=== PATIENT | female | born 1930 | race Hispanic/Latino ===

== ENCOUNTER 2017-06-13 13:26 | Inpatient (IN) | payer MEDICAID, SELFPAY ==
[2017-06-13 14:13] LABS: #Lymphocytes 1.1 thou/uL (1.20-3.40); #Monocytes 0.9 thou/uL (0.11-0.59); #Neutrophils 13.3 thou/uL (1.40-6.50); %Eosinophils 0.2 % (0.0-10.0); %Lymphocytes 7.3 % (21.0-51.0); %Monocytes 5.7 % (0.0-10.0); Mean Platelet Volume 8.3 fL (7.4-10.4); Red Blood Cell (RBC) Count 4.12 mill/uL (4.20-5.40); White Blood Cell (WBC) Count 15.3 thou/uL (4.8-10.8)
[2017-06-13 14:29] LABS: Lactic Acid - Sepsis 2.6 mmol/L (0.5-2.2)
[2017-06-13] MEDS ORDERED: Azithromycin 500 MG VIAL ONE (14:55)
[2017-06-13] MEDS ORDERED: Acetaminophen 500 MG TAB ONE (14:55)
[2017-06-13 15:26] LABS: Bilirubin Negative (Negative); Blood, Urine Trace (Negative); Glucose, Urine (Dipstick) Negative (Negative); Ketone, Urine Negative (Negative); Nitrite Negative (Negative); Protein, Urine (Dipstick) Negative (Neg-Trace)
[2017-06-13 15:28] LABS: Bacteria/HPF None Seen HPF (None Seen); Hyaline Casts/LPF 0-3 HYALINE CAST LPF (0-3 Hyaline); Squamous Epithelial None Seen HPF (0-3); WBC/HPF None Seen HPF (0-3)
[2017-06-13 15:30] LABS: Calcium 8.8 mg/dL (7.8-10.44); Chloride 102 mmol/L (98-107)
[2017-06-13 15:31] LABS: Globulin 3.6 g/dL (2.4-3.5); Protein, Total 7.5 g/dL (6.0-8.3)
[2017-06-13 15:33] LABS: Anion Gap 14 mmol/L (10-20); Carbon Dioxide 23 mmol/L (23-31)
[2017-06-13 15:34] LABS: Alkaline Phosphatase 104 U/L (40-150)
[2017-06-13 15:35] LABS: BUN (Urea Nitrogen) 9 mg/dL (9.8-20.1); Calc. Creatinine Clearance 0 mL/min (70-130); Estimated GFR-MDRD 81
[2017-06-13 15:36] LABS: AST (SGOT) 20 U/L (5-34)
[2017-06-13 15:37] LABS: ALT (SGPT) 17 U/L (8-55)
--- NOTE | 2017-06-13 16:08 | RAD ---
PORTABLE AP CHEST X-RAY 06/13/17 HISTORY: Fever and dyspnea. COMPARISON: 09/04/10. FINDINGS: The cardiac silhouette is magnified by projection but is probably mildly enlarged. There is crowding of the bronchovascular markings due to depth of inspiration and portable technique. However, the lung s are otherwise grossly clear. Vascular calcifications are seen in a tortuous thoracic aorta. There i s osteopenia. No other interval change. IMPRESSION: 1. No acute cardiopulmonary process. 2. Mild cardiomegaly. POS: LIN
--- NOTE | 2017-06-13 16:28 | CT ---
CT ANGIOGRAM THORAX AND ABDOMEN WITH IV CONTRAST AND 3D RECONSTRUCTIONS 06/13/17 HISTORY: Periumbilical pain that radiates to the back. Pain is intermittent. Patient also complains of left ar m pain and chest pain. FINDINGS: The thoracic and abdominal aorta are normal in caliber without evidence of an aortic dissection. Ther e is scattered vascular calcifications in the thoracic and abdominal aorta. There is mild narrowing a t the origin of the celiac artery with mild to moderate narrowing at the origin of the SMA. ROSALINE origi n is not well seen. There are two left renal arteries which appear patent with single patent right re nal artery. The heart is mildly enlarged. There are linear areas of scarring versus atelectasis at each lung base and in the right middle lobe. No discrete pulmonary nodular mass is seen and there is no evidence o f a pleural effusion. Post cholecystectomy changes are seen. There are subcentimeter too small to characterize hypodense lesions involving each kidney. There is a lso a larger low density lesion seen in the mid portion of the right kidney difficult to characterize due to artifact. There is diminished attenuation of the liver which may be related to fatty infiltration, but this is difficult to evaluate without precontrast imaging. The spleen, pancreas, and bilateral adrenal glands demonstrate a normal CT appearance. There is evide nce of a small hiatal hernia present. Vascular calcifications are seen in the most proximal common iliac arteries. There are degenerative changes seen throughout the thoracic as well as lumbar spine. IMPRESSION: 1. The thoracic and abdominal aorta are normal in caliber without evidence of an aortic dissecti on. Only minimal atherosclerotic vascular calcifications are present. 2. Subcentimeter too small to characterize hypodense lesions in each kidney with a larger hypode nse lesion in the mid portion right kidney which is difficult to definitively characterize due artifa ct related to patient's arms overlying the abdomen. However, this statistically likely represents a c yst. Ultrasound may be helpful. 3. Post cholecystectomy changes. 4. No acute findings are seen in the chest or abdomen. POS: [facility]
[2017-06-13] MEDS ORDERED: Acetaminophen 325 MG TAB PO PRN ×2 (17:08→17:51)
[2017-06-13] MEDS ORDERED: Sodium Chloride 0.9% 1,000 ML IV SCH (17:08)
[2017-06-13] MEDS ORDERED: ISOVUE-370 76%-LOCM 1 ML ONE (17:17)
[2017-06-13 17:47] VITALS: BMI 35.7
[2017-06-13] MEDS ORDERED: Fleet Enema 133 ML BOT PR PRN (17:51)
[2017-06-13] MEDS ORDERED: Milk Of Magnesia 30 ML UDCUP PO PRN (17:51)
[2017-06-13] MEDS ORDERED: FLU VACC TS2017-18 (>65YR) 0.5 ML SYRINGE IM ONE (18:15)
[2017-06-13] MEDS ORDERED: Levofloxacin 750 mg/D5W 500 MG in Premix Bag 1 BAG IVPB SCH ×4 (18:30)
--- NOTE | 2017-06-13 19:05 | HP ---
REASON FOR ADMISSION: Sepsis, urinary tract infection. HISTORY OF PRESENTING ILLNESS: The patient gives history of having chills with rigors from Wednesday. She has had lower abdominal pain radiating to the back. She went to [facility] this morning and she was found to be short of breath and was asked to go to the emergency room. She has had some dry cough, but no expectoration. She has been nauseated and threw up 2 times here in the ER. She still has chills and rigors and had a temperature of 100 degrees on arrival here. The patient has had one bowel movement this morning, which appeared normal. No urinary frequency or urgency per patient. No complaints of chest pain, palpitation, or PND. No prior history of similar complaints. PAST MEDICAL AND SURGICAL HISTORY: History of hypertension, cholecystectomy. CURRENT MEDICATIONS: Captopril 25 mg daily, Motrin p.r.n. for pain. ALLERGIES: No known drug allergies. PERSONAL HISTORY: Does not abuse alcohol or drugs. No history of smoking. FAMILY HISTORY: Has 2 living sisters who are healthy as far she knows. Patient ambulates mostly by herself, occasionally uses cane. She has not had her flu shot for this year. REVIEW OF SYSTEMS: The following complete review of systems was negative, unless otherwise mentioned in the HPI or below: CONSTITUTIONAL: Weight loss or gain, ability to conduct usual activities. SKIN: Rash, itching. EYES: Double vision, pain. ENT/MOUTH: Nose bleeding, neck stiffness, pain, tenderness. CARDIOVASCULAR: Palpitations, dyspnea on exertion, orthopnea. RESPIRATORY: Shortness of breath, wheezing, cough, hemoptysis, fever or night sweats. GASTROINTESTINAL: Poor appetite, abdominal pain, heartburn, nausea, vomiting, constipation, or diarrhea. GENITOURINARY: Urgency, frequency, dysuria, nocturia. MUSCULOSKELETAL: Pain, swelling. NEUROLOGIC/PSYCHIATRIC: Anxiety, depression. ALLERGY/IMMUNOLOGIC: Skin rash, bleeding tendency. PHYSICAL EXAMINATION: GENERAL: The patient is an 87-year-old female who is currently in mild to moderate distress from chills and rigors. VITAL SIGNS: Blood pressure 186/74, pulse 96 per minute, respiratory rate 22 per minute, temperature 99.5 degrees Fahrenheit, saturating 94% on room air. NECK: Supple, no elevated JVD. HEENT: Extraocular muscles intact. Pupils reacting to light. Oral cavity mucous membranes are dry. No exudates or congestion. CARDIOVASCULAR SYSTEM: S1, S2 heard. Regular rhythm. RESPIRATORY SYSTEM: Air entry 1+ bilateral. Scattered rhonchi plus no rales or wheezes. ABDOMEN: There is mild tenderness in the suprapubic area. No guarding or rigidity. There is mild distention of the abdomen. There was no CVA angle tenderness. EXTREMITIES: No peripheral edema or calf tenderness. VASCULAR SYSTEM: Peripheral pulses 1+ bilateral. No ischemic ulcerations or gangrene. CENTRAL NERVOUS SYSTEM: No gross focal deficits seen. Patient is alert, awake , and oriented well. PSYCHIATRIC: The patient's mood is euthymic. No hallucinations or delusions. LABORATORY AND X-RAY FINDINGS: White count of 15, H&H 13 and 39, with 86% neutrophils, MCV is 94. Sodium 135, BUN 9, creatinine 0.6, glucose 114. Lactic acid is 2.6. UA shows trace blood, otherwise no signs of infection as such. Chest x-ray by my review shows no acute infiltrate. CT dissection protocol has been done. The official results are pending at present. CLINICAL IMPRESSION AND PLAN: The patient will be admitted to medical floor for sepsis with chills, rigors, and temperature of 100 degrees. We will obtain blood and urine cultures along with sputum cultures as well. She will be on broad broad-spectrum antibiotics for now including cefepime, Levaquin, and vancomycin until the source of sepsis is revealed. She will be on normal saline at 100 mL per hour. Code status is FULL. I have discussed this with the patient and her immediate family here. We will follow up on the CT dissection protocol results. FATEMEH
[2017-06-13] MEDS: Sodium Chloride 0.9% 1,000 ML IV SCH (19:27)
[2017-06-13] MEDS ORDERED: Cefepime 1 GM in Sodium Chloride 0.9% 100 ML IVPB SCH (21:00)
[2017-06-13] MEDS: Cefepime 1 GM, Admixture Fee 1 EACH in Sterile Water 10 ML SLOW IVP SCH (21:29)
[2017-06-13] MEDS: Famotidine 20 MG TAB PO SCH (21:30)
[2017-06-13] MEDS: Vancomycin HCl 1 GM in Premix Bag 1 BAG IVPB SCH (21:30)
[2017-06-13] MEDS: Docusate 100 MG CAP PO SCH (21:30)
[2017-06-14] MEDS: Sodium Chloride 0.9% 1,000 ML IV SCH ×2 (02:43→13:51)
[2017-06-14 05:23] LABS: #Lymphocytes 1.4 thou/uL (1.20-3.40); #Monocytes 0.8 thou/uL (0.11-0.59); #Neutrophils 10.7 thou/uL (1.40-6.50); %Basophils 0.2 % (0.0-1.0); %Eosinophils 0.1 % (0.0-10.0); %Lymphocytes 11.1 % (21.0-51.0); %Monocytes 6.3 % (0.0-10.0); Mean Platelet Volume 7.6 fL (7.4-10.4); Red Blood Cell (RBC) Count 3.37 mill/uL (4.20-5.40)
[2017-06-14 05:43] LABS: ALT (SGPT) 15 U/L (8-55); AST (SGOT) 20 U/L (5-34); Alkaline Phosphatase 88 U/L (40-150); Anion Gap 10 mmol/L (10-20); BUN (Urea Nitrogen) 5 mg/dL (9.8-20.1); Bilirubin, Total 0.8 mg/dL (0.2-1.2); Calc. Creatinine Clearance 69 mL/min (70-130); Carbon Dioxide 20 mmol/L (23-31); Chloride 110 mmol/L (98-107); Estimated GFR-MDRD Greater than 90; Globulin 3.1 g/dL (2.4-3.5); Protein, Total 6.3 g/dL (6.0-8.3)
[2017-06-14] MEDS ORDERED: Artificial Tears 18 DROP/0.9 ML EA EYE PRN (07:22)
[2017-06-14] MEDS ORDERED: Loratadine 10 MG TAB PO PRN (07:22)
[2017-06-14] MEDS ORDERED: Chloraseptic Spray 180 ml Bottle PO PRN (07:22)
[2017-06-14] MEDS ORDERED: Eucerin (Mineral Oil/Petrolatum,White) 30 gm Jar TOP PRN (07:22)
[2017-06-14] MEDS ORDERED: Ondansetron ODT 4 MG TAB PO PRN (07:22)
[2017-06-14] MEDS ORDERED: Mag-Al 1200 mg/1200 mg/30 ML UDCUP PO PRN (07:22)
[2017-06-14] MEDS ORDERED: Diabetic Tussin 200 MG/10 ML UDCUP PO PRN (07:22)
[2017-06-14] MEDS ORDERED: Zolpidem Tartrate 5 MG TAB PO PRN (07:22)
[2017-06-14] MEDS ORDERED: Ondansetron HCl/PF 4 MG/2 ML Vial IVP PRN (07:22)
[2017-06-14] MEDS ORDERED: hydrALAZINE 20 MG/ML VIAL SLOW IVP PRN (07:22)
[2017-06-14] MEDS ORDERED: Sodium Chloride 0.65% Nasal 44 ML BOT EA NARE PRN (07:22)
[2017-06-14] MEDS ORDERED: ISOVUE-370 76%-LOCM 1 ML ONE (07:42)
[2017-06-14] MEDS ORDERED: Potassium Chloride 20 MEQ TAB PO SCH (08:00)
[2017-06-14] MEDS: Famotidine 20 MG TAB PO SCH ×2 (08:54→20:49)
[2017-06-14] MEDS: Enoxaparin Sodium 40 MG/0.4 ML SYRINGE SC SCH (08:57)
[2017-06-14] MEDS: Cefepime 1 GM, Admixture Fee 1 EACH in Sterile Water 10 ML SLOW IVP SCH ×2 (08:58→20:51)
[2017-06-14] MEDS: Docusate 100 MG CAP PO SCH (08:58)
[2017-06-14] MEDS: metroNIDAZOLE 500 MG in Premix Bag 1 BAG IVPB SCH ×2 (10:18→17:17)
--- NOTE | 2017-06-14 11:54 | PDOC.PN ---
- Subjective Encounter Start Date: 06/14/17 Encounter Start Time: 09:00 -: old records requested/rev pt has fever, has diarrhoea and left lower abdomen pain, no chest pain - Objective Resuscitation Status: Resuscitation Status FULL:Full Resuscitation MAR Reviewed: Yes Vital Signs & Weight: Vital Signs (12 hours) Temp Pulse Resp BP Pulse Ox 06/14/17 11:17 99.9 F H 67 18 152/72 H 94 L 06/14/17 08:00 99.4 F 68 18 151/74 H 94 L 06/14/17 05:44 98.5 F 06/14/17 05:27 100.9 F H 71 18 118/61 93 L 06/14/17 05:00 100.8 F H 06/14/17 02:16 100.5 F H 06/14/17 01:13 99.9 F H 79 18 158/65 H 18 L 06/14/17 00:24 99.6 F 75 18 144/68 H 96 Weight Admit Weight 142 lb 14.4 oz Weight 142 lb 14.4 oz I&O: 06/13/17 06/14/17 06/15/17 06:59 06:59 06:59 Intake Total 1649 Output Total 450 Balance 1199 Result Diagrams: 06/14/17 04:38 06/14/17 04:38 Radiology Reviewed by me: Yes Phys Exam - Physical Examination Constitutional: NAD HEENT: PERRLA, moist MMs, sclera anicteric Neck: no JVD, supple Respiratory: no wheezing, no rales, no rhonchi Cardiovascular: RRR, no significant murmur, no rub Gastrointestinal: soft, no distention, positive bowel sounds LLQ tenderness Musculoskeletal: no edema, pulses present Neurological: non-focal, normal sensation, moves all 4 limbs Psychiatric: normal affect, A&O x 3 Skin: no rash, normal turgor Dx/Plan (1) Abdominal pain Code(s): R10.9 - UNSPECIFIED ABDOMINAL PAIN Status: Acute Qualifiers: Abdominal location: left lower quadrant Qualified Code(s): R10.32 - Left lower quadrant pain (2) Acute bronchitis Code(s): J20.9 - ACUTE BRONCHITIS, UNSPECIFIED Status: Acute (3) Lactic acidosis Code(s): E87.2 - ACIDOSIS Status: Acute (4) Sepsis Code(s): A41.9 - SEPSIS, UNSPECIFIED ORGANISM Status: Acute (5) Hypertension Code(s): I10 - ESSENTIAL (PRIMARY) HYPERTENSION Status: Chronic (6) Obesity (BMI 30-39.9) Code(s): E66.9 - OBESITY, UNSPECIFIED Status: Chronic (7) Hypokalemia Code(s): E87.6 - HYPOKALEMIA Status: Acute - Plan cont current plan of care, plan discussed w/ family, continue antibiotics * suspecting diverticulitis/colitis * will get CT abdomen * add flagyl * continue levaquin * send stool for infection. * medication reviewed as below * symptomatic treatment * replace potassium * continue IVF Review of Systems - Review of Systems Constitutional: Fever. negative: Chills, Sweats, Weakness, Malaise, Other ENT: negative: Ear Pain, Ear Discharge, Nose Pain, Nose Discharge, Nose Congestion, Mouth Pain, Mouth Swelling, Throat Pain, Throat Swelling, Other Respiratory: negative: Cough, Dry, Shortness of Breath, Hemoptysis, SOB with Excertion, Pleuritic Pain, Sputum, Wheezing Cardiovascular: negative: Chest Pain, Palpitations, Orthopnea, Paroxysmal Noc. Dyspnea, Edema, Light Headedness, Other Gastrointestinal: Abdominal Pain. negative: Nausea, Vomiting, Diarrhea, Constipation, Melena, Hematochezia, Other Genitourinary: negative: Dysuria, Frequency, Incontinence, Hematuria, Retention , Other Musculoskeletal: negative: Neck Pain, Shoulder Pain, Arm Pain, Back Pain, Hand Pain, Leg Pain, Foot Pain, Other Skin: negative: Rash, Lesions, Addy, Bruising, Other - Medications/Allergies Allergies/Adverse Reactions: Allergies Allergy/AdvReac Type Severity Reaction Status Date / Time No Known Allergies Allergy Unverified 06/13/17 17:04 Medications: Current Medications Acetaminophen (Tylenol) 650 mg PO Q4H PRN PRN Reason: Headache/Fever or Pain Last Admin: 06/14/17 01:16 Dose: 650 mg Hydrocodone Bitart/Acetaminophen ([place] 5/325) 1 tab PO Q4H PRN PRN Reason: Moderate Pain (4-6) Al Hydroxide/Mg Hydroxide (Maalox) 15 ml PO Q4H PRN PRN Reason: Heartburn or Indigestion Artificial Tears (Tears Naturale) 0 drop EA EYE PRN PRN PRN Reason: Dry Eyes Enoxaparin Sodium (Lovenox) 40 mg SC 0900 [facility] Last Admin: 06/14/17 08:57 Dose: 40 mg Famotidine (Pepcid) 20 mg PO BID [facility] Last Admin: 06/14/17 08:54 Dose: 20 mg Guaifenesin (Robitussin Sf) 200 mg PO Q4H PRN PRN Reason: Cough Guaifenesin/Dextromethorphan (Robitussin Dm) 15 ml PO Q4H PRN PRN Reason: Cough Hydralazine HCl (Apresoline) 10 mg SLOW IVP Q4H PRN PRN Reason: Systolic BP > 180 Sodium Chloride (Normal Saline 0.9%) 1,000 mls @ 100 mls/hr IV .Q10H [facility] Last Admin: 06/14/17 02:43 Dose: Not Given Vancomycin HCl 1 gm/ Device 200 mls @ 200 mls/hr IVPB 1999 [facility] Last Admin: 06/13/17 21:30 Dose: 200 mls Cefepime HCl 1 gm/Miscellaneous Medication 1 each/ Sterile Water 10 mls @ 120 mls/hr SLOW IVP 0800,1999 [facility] Last Admin: 06/14/17 08:58 Dose: 10 mls Levofloxacin 500 mg/ Device 100 mls @ 100 mls/hr IVPB Q2D [facility] Last Admin: 06/13/17 19:27 Dose: 100 mls Metronidazole 500 mg/ Device 100 mls @ 100 mls/hr IVPB 0200,1000,1800 [facility] Last Admin: 06/14/17 10:18 Dose: 100 mls Loratadine (Claritin) 10 mg PO DAILYPRN PRN PRN Reason: Sinus Symptoms Magnesium Hydroxide (Milk Of Magnesium) 30 ml PO DAILYPRN PRN PRN Reason: Constipation Mineral Oil/White Petrolatum (Eucerin Cream) 0 gm TOP BIDPRN PRN PRN Reason: Dry Skin Ondansetron HCl (Zofran Odt) 4 mg PO Q6H PRN PRN Reason: Nausea/Vomiting Ondansetron HCl (Zofran) 4 mg IVP Q6H PRN PRN Reason: Nausea/Vomiting Phenol (Chloraseptic [place] 180 Ml Bot) 0 ml PO PRN PRN PRN Reason: Sore Throat Saccharomyces Boulardii (Florastor) 250 mg PO DAILY [facility] Sodium Biphosphate/Sodium Phosphate (Fleet Enema) 133 ml [place] ONE PRN PRN Reason: Constipation Stop: 06/14/17 17:52 Sodium Chloride ([place] Nasal [place] 0.65%) 0 ml EA NARE QIDPRN PRN PRN Reason: Nasal Congestion Zolpidem Tartrate (Ambien) 5 mg PO HSPRN PRN PRN Reason: Insomnia
--- NOTE | 2017-06-14 18:43 | CT ---
CT ABDOMEN AND PELVIS WITH IV AND ORAL CONTRAST: HISTORY: Abdominal pain and pelvic pain. COMPARISON: 06/13/2017. FINDINGS: Mild atelectasis and scarring are present at the lung bases. Hiatal hernia contains oral contrast. The gallbladder is surgically absent. Calcifications at the arterial structures is evident. There a re cysts within the kidneys. No evidence of bowel obstruction. Urinary bladder is unremarkable. Diverticulitis from the colon. Inflammation within the pelvic fat is centered around the mid to dist al sigmoid colon. There is minimal adjacent fluid. IMPRESSION: 1. Sigmoid colitis. Diverticulitis is the favored diagnosis. No evidence of perforation or abscess. 2. Atherosclerosis. 3. Status post cholecystectomy. POS: [facility]
[2017-06-14] MEDS: Vancomycin HCl 1 GM in Premix Bag 1 BAG IVPB SCH (20:52)
[2017-06-14] MEDS: HYDROcodone/Acetaminophen 5/325 mg Tablet PO PRN (21:18)
[2017-06-14] MEDS: Guaifenesin DM 100-10/5 ML UDCUP PO PRN (21:19)
[2017-06-15] MEDS: Sodium Chloride 0.9% 1,000 ML IV SCH ×2 (00:36→01:43)
[2017-06-15] MEDS: metroNIDAZOLE 500 MG in Premix Bag 1 BAG IVPB SCH ×3 (01:46→16:48)
[2017-06-15] MEDS: Famotidine 20 MG TAB PO SCH ×2 (08:10→20:05)
[2017-06-15] MEDS: Saccharomyces boulardii 250 MG CAP PO SCH (08:10)
[2017-06-15] MEDS: Enoxaparin Sodium 40 MG/0.4 ML SYRINGE SC SCH (08:10)
[2017-06-15] MEDS: NS 0.9% w/ 20 MEQ KCL 1,000 ML/1,000 ML BAG IV SCH ×2 (08:10→16:48)
--- NOTE | 2017-06-15 11:13 | PDOC.PN ---
- Subjective Encounter Start Date: 06/15/17 Encounter Start Time: 09:45 Patient seen and examined. No new complaints. No overnight events, has LLQ pain - Objective Resuscitation Status: Resuscitation Status FULL:Full Resuscitation MAR Reviewed: Yes Vital Signs & Weight: Vital Signs (12 hours) Temp Pulse Resp BP Pulse Ox 06/15/17 08:00 99.1 F 66 18 143/71 H 95 06/15/17 04:00 98.7 F 61 20 119/67 06/15/17 00:00 99.2 F 65 20 113/68 95 Weight Admit Weight 142 lb 14.4 oz Weight 142 lb 14.4 oz I&O: 06/14/17 06/15/17 06/16/17 06:59 06:59 06:59 Intake Total 1649 1000 Output Total 450 Balance 1199 1000 Result Diagrams: 06/14/17 04:38 06/14/17 04:38 Radiology Reviewed by me: Yes (CT abdomen) Phys Exam - Physical Examination Constitutional: NAD HEENT: PERRLA, moist MMs, sclera anicteric Neck: no JVD, supple Respiratory: no wheezing, no rales, no rhonchi, clear to auscultation bilateral Cardiovascular: RRR, no significant murmur, no rub Gastrointestinal: soft, no distention, positive bowel sounds LLQ tenderness Musculoskeletal: no edema, pulses present Neurological: non-focal, normal sensation, moves all 4 limbs Psychiatric: normal affect, A&O x 3 Skin: no rash, normal turgor Dx/Plan (1) Abdominal pain Code(s): R10.9 - UNSPECIFIED ABDOMINAL PAIN Status: Acute Qualifiers: Abdominal location: left lower quadrant Qualified Code(s): R10.32 - Left lower quadrant pain (2) Lactic acidosis Code(s): E87.2 - ACIDOSIS Status: Acute (3) Sepsis Code(s): A41.9 - SEPSIS, UNSPECIFIED ORGANISM Status: Acute (4) Hypertension Code(s): I10 - ESSENTIAL (PRIMARY) HYPERTENSION Status: Chronic (5) Obesity (BMI 30-39.9) Code(s): E66.9 - OBESITY, UNSPECIFIED Status: Chronic (6) Hypokalemia Code(s): E87.6 - HYPOKALEMIA Status: Acute (7) Acute diverticulitis of intestine Code(s): K57.92 - DVTRCLI OF INTEST, PART UNSP, W/O PERF OR ABSCESS W/O BLEED Status: Acute - Plan cont current plan of care, plan discussed w/ family, continue antibiotics * continue levaquin and flagyl * continue IVF * continue selected home meds * medication reviewed as below * symptomatic treatment * pain control * will need outpt colonoscopy. * stool for infection is negative Review of Systems - Review of Systems Constitutional: negative: Fever, Chills, Sweats, Weakness, Malaise, Other Eyes: negative: Pain, Vision Change, Conjunctivae Inflammation, Eyelid Inflammation, Redness, Other ENT: negative: Ear Pain, Ear Discharge, Nose Pain, Nose Discharge, Nose Congestion, Mouth Pain, Mouth Swelling, Throat Pain, Throat Swelling, Other Respiratory: negative: Cough, Dry, Shortness of Breath, Hemoptysis, SOB with Excertion, Pleuritic Pain, Sputum, Wheezing Cardiovascular: negative: Chest Pain, Palpitations, Orthopnea, Paroxysmal Noc. Dyspnea, Edema, Light Headedness, Other Gastrointestinal: Abdominal Pain. negative: Nausea, Vomiting, Diarrhea, Constipation, Melena, Hematochezia, Other Genitourinary: negative: Dysuria, Frequency, Incontinence, Hematuria, Retention , Other Musculoskeletal: negative: Neck Pain, Shoulder Pain, Arm Pain, Back Pain, Hand Pain, Leg Pain, Foot Pain, Other Skin: negative: Rash, Lesions, Addy, Bruising, Other - Medications/Allergies Allergies/Adverse Reactions: Allergies Allergy/AdvReac Type Severity Reaction Status Date / Time No Known Allergies Allergy Unverified 06/13/17 17:04 Medications: Current Medications Acetaminophen (Tylenol) 650 mg PO Q4H PRN PRN Reason: Headache/Fever or Pain Last Admin: 06/14/17 01:16 Dose: 650 mg Hydrocodone Bitart/Acetaminophen ([place] 5/325) 1 tab PO Q4H PRN PRN Reason: Moderate Pain (4-6) Last Admin: 06/14/17 21:18 Dose: 1 tab Al Hydroxide/Mg Hydroxide (Maalox) 15 ml PO Q4H PRN PRN Reason: Heartburn or Indigestion Artificial Tears (Tears Naturale) 0 drop EA EYE PRN PRN PRN Reason: Dry Eyes Enoxaparin Sodium (Lovenox) 40 mg SC 0900 [facility] Last Admin: 06/15/17 08:10 Dose: 40 mg Famotidine (Pepcid) 20 mg PO BID [facility] Last Admin: 06/15/17 08:10 Dose: 20 mg Guaifenesin (Robitussin Sf) 200 mg PO Q4H PRN PRN Reason: Cough Guaifenesin/Dextromethorphan (Robitussin Dm) 15 ml PO Q4H PRN PRN Reason: Cough Last Admin: 06/14/17 21:19 Dose: 15 ml Hydralazine HCl (Apresoline) 10 mg SLOW IVP Q4H PRN PRN Reason: Systolic BP > 180 Metronidazole 500 mg/ Device 100 mls @ 100 mls/hr IVPB 0200,1000,1800 [facility] Last Admin: 06/15/17 09:05 Dose: 100 mls Levofloxacin 500 mg/ Device 100 mls @ 100 mls/hr IVPB DAILY [facility] Last Admin: 06/15/17 08:10 Dose: 100 mls Potassium Chloride/Sodium Chloride (Ns 0.9% W/ 20 Meq Kcl) 1,000 ml in 1,000 mls @ 75 mls/hr IV .[id number] [facility] Last Admin: 06/15/17 08:10 Dose: Not Given Loratadine (Claritin) 10 mg PO DAILYPRN PRN PRN Reason: Sinus Symptoms Magnesium Hydroxide (Milk Of Magnesium) 30 ml PO DAILYPRN PRN PRN Reason: Constipation Mineral Oil/White Petrolatum (Eucerin Cream) 0 gm TOP BIDPRN PRN PRN Reason: Dry Skin Ondansetron HCl (Zofran Odt) 4 mg PO Q6H PRN PRN Reason: Nausea/Vomiting Ondansetron HCl (Zofran) 4 mg IVP Q6H PRN PRN Reason: Nausea/Vomiting Phenol (Chloraseptic [place] 180 Ml Bot) 0 ml PO PRN PRN PRN Reason: Sore Throat Saccharomyces Boulardii (Florastor) 250 mg PO DAILY [facility] Last Admin: 06/15/17 08:10 Dose: 250 mg Sodium Chloride ([place] Nasal [place] 0.65%) 0 ml EA NARE QIDPRN PRN PRN Reason: Nasal Congestion Sodium Chloride (Flush - Normal Saline) 10 ml IVF Q12HR [facility] Last Admin: 06/15/17 08:11 Dose: Not Given Sodium Chloride (Flush - Normal Saline) 10 ml IVF PRN PRN PRN Reason: Saline Flush Zolpidem Tartrate (Ambien) 5 mg PO HSPRN PRN PRN Reason: Insomnia
[2017-06-15] MEDS: Guaifenesin DM 100-10/5 ML UDCUP PO PRN (20:04)
[2017-06-16] MEDS: metroNIDAZOLE 500 MG in Premix Bag 1 BAG IVPB SCH ×2 (01:22→08:53)
[2017-06-16] MEDS: Guaifenesin DM 100-10/5 ML UDCUP PO PRN (01:23)
[2017-06-16] MEDS: HYDROcodone/Acetaminophen 5/325 mg Tablet PO PRN (01:39)
[2017-06-16 04:29] LABS: #Eosinphils 0.1 thou/uL (0.0-0.7); #Lymphocytes 1.1 thou/uL (1.20-3.40); #Monocytes 0.4 thou/uL (0.11-0.59); #Neutrophils 4.6 thou/uL (1.40-6.50); %Basophils 0.3 % (0.0-1.0); %Eosinophils 2.3 % (0.0-10.0); %Monocytes 6.1 % (0.0-10.0); Hematocrit 31.1 % (36.0-47.0); Mean Platelet Volume 7.5 fL (7.4-10.4); Red Blood Cell (RBC) Count 3.29 mill/uL (4.20-5.40); White Blood Cell (WBC) Count 6.2 thou/uL (4.8-10.8)
[2017-06-16 04:53] LABS: Anion Gap 8 mmol/L (10-20); BUN (Urea Nitrogen) Less than 4 mg/dL (9.8-20.1); Calc. Creatinine Clearance 73 mL/min (70-130); Calcium 7.9 mg/dL (7.8-10.44); Carbon Dioxide 25 mmol/L (23-31); Chloride 110 mmol/L (98-107); Estimated GFR-MDRD Greater than 90; Magnesium 2.1 mg/dL (1.6-2.6); Phosphorus 2.7 mg/dL (2.3-4.7)
[2017-06-16] MEDS: NS 0.9% w/ 20 MEQ KCL 1,000 ML/1,000 ML BAG IV SCH ×2 (06:17→07:42)
[2017-06-16] MEDS: Enoxaparin Sodium 40 MG/0.4 ML SYRINGE SC SCH (07:41)
[2017-06-16] MEDS: Famotidine 20 MG TAB PO SCH (07:42)
[2017-06-16] MEDS: Saccharomyces boulardii 250 MG CAP PO SCH (07:42)
[2017-06-16 11:17] VITALS: BP 126/79; TEMP 98
--- NOTE | 2017-06-16 13:23 | PDOC.PN ---
- Subjective Encounter Start Date: 06/16/17 Encounter Start Time: 06:45 Subjective: no abd pain or nausea now -: feels better, wants to go home - Objective Resuscitation Status: Resuscitation Status FULL:Full Resuscitation MAR Reviewed: Yes Vital Signs & Weight: Vital Signs (12 hours) Temp Pulse Resp BP BP Pulse Ox 06/16/17 11:16 98.0 F 85 18 126/79 95 06/16/17 07:58 98.5 F 64 18 06/16/17 07:32 98.5 F 64 18 137/77 95 06/16/17 05:00 98.6 F 61 18 121/58 L 96 Weight Admit Weight 142 lb 14.4 oz Weight 142 lb 14.4 oz I&O: 06/15/17 06/16/17 06/17/17 06:59 06:59 06:59 Intake Total 1000 800 Balance 1000 800 Result Diagrams: 06/16/17 03:28 06/16/17 03:28 Phys Exam - Physical Examination HEENT: PERRLA, moist MMs Neck: no JVD, supple Respiratory: no wheezing, no rales Cardiovascular: RRR, no significant murmur Gastrointestinal: soft, non-tender, no distention, positive bowel sounds Musculoskeletal: no edema, pulses present Neurological: non-focal, moves all 4 limbs Psychiatric: A&O x 3 Dx/Plan (1) Acute diverticulitis of intestine Code(s): K57.92 - DVTRCLI OF INTEST, PART UNSP, W/O PERF OR ABSCESS W/O BLEED Status: Acute (2) Hypokalemia Code(s): E87.6 - HYPOKALEMIA Status: Acute (3) Sepsis Code(s): A41.9 - SEPSIS, UNSPECIFIED ORGANISM Status: Resolved Qualifiers: Sepsis type: sepsis due to unspecified organism Qualified Code(s): A41.9 - Sepsis, unspecified organism (4) Hypertension Code(s): I10 - ESSENTIAL (PRIMARY) HYPERTENSION Status: Chronic Qualifiers: Hypertension type: essential hypertension Qualified Code(s): I10 - Essential (primary) hypertension (5) Obesity (BMI 30-39.9) Code(s): E66.9 - OBESITY, UNSPECIFIED Status: Chronic - Plan hemostable -: continue levaquin and flagyl for 10 days for diverticulitis -: fiber rich diet -: dc pt home * .
--- NOTE | 2017-06-16 23:21 | DIS ---
DATE OF ADMISSION: 06/13/2017 DATE OF DISCHARGE: 06/16/2017 DISCHARGE DISPOSITION: To home. PRIMARY DISCHARGE DIAGNOSES: Acute diverticulitis, sepsis. SECONDARY DISCHARGE DIAGNOSES: Hypertension, hypokalemia, obesity. PROCEDURES DONE DURING HOSPITALIZATION: The patient has had CT of the abdomen and pelvis with IV and oral contrast done. This showed sigmoid diverticulitis. There is no evidence of perforation or abs cess. Stool cultures have not revealed any bacteria. Blood cultures x2 no growth. Urine culture no growth at 36 hours. Discharge H&H are 10 and 31, platelet count 208, had a white count of 15 on the day of admission with discharge numbers of 6. DISCHARGE MEDICATIONS: Levaquin 500 mg p.o. daily for another 10 days, Flagyl 500 mg p.o. 3 times da chris for another 10 days, Motrin 200 mg p.o. twice daily p.r.n. and captopril 25 mg p.o. daily. ALLERGIES: No known drug allergies. DISCHARGE PLAN: The patient to follow up with primary care physician in 1 week. BRIEF COURSE DURING HOSPITALIZATION: The patient initially got admitted on 06/13/2017 with complaint s of fever, chills, and lower abdominal pain. She has had initial CT dissection protocol done, which did not reveal any abnormality. She has had CT of the abdomen and pelvis with IV and oral contrast done, which showed sigmoid diverticulitis. Her UA and urine culture have been negative for any infec tion. The patient was placed on IV antibiotics and has responded well. Her abdominal pain has compl etely resolved and is tolerating oral solid diet. Her fever and chills have completely resolved. Th e patient needs to follow up with her primary care physician in 1 week. Also, she has been advised t o follow a high fiber diet. Please see a [id number] documentation on Mto[facility] for the day of disch cindy.
--- NOTE | 2017-07-20 14:09 | EKG ---
Test Reason : Blood Pressure : / mmHG Vent. Rate : 090 BPM Atrial Rate : 090 BPM P-R Int : 158 ms QRS Dur : 076 ms QT Int : 348 ms P-R-T Axes : 032 010 135 degrees QTc Int : 425 ms Normal sinus rhythm Abnormal ECG Confirmed by BIB ZHAO, KEYANNA Williamson ([id number]), assistant film editor MAKENNA ODEN ([id number]) on 07/20/2017 2:09:21 PM Referred By: Confirmed By:KEYANNA MCCARTNEY MD
== END 2017-06-16 11:15 | disposition home or self-care (01) | DRG 872 ==
LOC: ERS 13:26 → T4-B 16:17
PROVIDERS: ADMIT Internal Medicine; ATTEND Internal Medicine
DX: A41.9 Sepsis, unspecified organism (principal); E87.2 Acidosis; K57.32 Diverticulitis of large intestine without perforation or abscess without bleeding; I10 Essential (primary) hypertension; E66.9 Obesity, unspecified; Z68.39 Body mass index [BMI] 39.0-39.9, adult; E87.6 Hypokalemia
CPT/HCPCS: 36415; 71010; 71275; 74177; 80048; 80053; 81003; 81015; 83605; 83735; 84100; 85025; 87015; 87040; 87045; 87046; 87086; 87324; 87328; 87329; 87449; 87633; 87899; 93005; 94640; 96365; 96375; A4216; G8978-GP-CI; G8979-GP-CI; G8980-GP-CI; J0456; J0692; J0696; J1650; J1956; J3370